=== PATIENT | female | born 1945 | race Caucasian/White ===

== ENCOUNTER 2019-03-24 05:34 | Day surgery (SDC) | payer MEDICARE ==
[~2019-03-24] VITALS: Ht 160 cm; Wt 63.8 kg
[~2019-03-24 05:34] MED LIST: ASPI-555 PO; ATOR20TA65 PO; BUPR100T13 PO; CLOBETASOL; ESOM40CA54 PO; FLUT16H NASAL; LACT1CAP62 PO; LITH150C PO; LORA10CA9 PO; META-25 PO; METO25TA6 PO; NITROSTAT; OLOP2.5D5 OU; OMEG-148 PO; TYLENOL PM PO; UBID100C10 PO; VITAMIN B 12 PO
[2019-03-24] MEDS ORDERED: SODIUM CHLORIDE 0.9% 1000ML 1,000 ML IV ONE ×2 (05:40)
[2019-03-24] MEDS ORDERED: LIDOCAINE HCL 1% 20 ML VIAL ONE (06:01)
[2019-03-24] MEDS ORDERED: PROPOFOL 10 MG/ML 20ML VIAL IV ONE (06:01)
[2019-03-24 06:05] VITALS: BP 126/45
[2019-03-24 07:29] VITALS: BP 123/53
[2019-03-24 07:34] VITALS: BP 132/51
[2019-03-24 07:39] VITALS: BP 124/46
[2019-03-24 07:44] VITALS: BP 135/54
== END 2019-03-24 07:53 | disposition home or self-care (01) ==
LOC: DAH 05:34 → ENDO 05:34
PROVIDERS: ATTEND Internal Medicine
DX: K29.50 Unspecified chronic gastritis without bleeding (principal); K22.2 Esophageal obstruction; K44.9 Diaphragmatic hernia without obstruction or gangrene; I11.0 Hypertensive heart disease with heart failure; I50.9 Heart failure, unspecified; E78.00 Pure hypercholesterolemia, unspecified; M19.90 Unspecified osteoarthritis, unspecified site; K21.9 Gastro-esophageal reflux disease without esophagitis; I25.10 Atherosclerotic heart disease of native coronary artery without angina pectoris; F31.9 Bipolar disorder, unspecified; Z88.1 Allergy status to other antibiotic agents; Z88.8 Allergy status to other drugs, medicaments and biological substances; Z79.899 Other long term (current) drug therapy; Z79.01 Long term (current) use of anticoagulants; Z90.710 Acquired absence of both cervix and uterus; Z98.890 Other specified postprocedural states
CPT/HCPCS: 43239; 43249; 88305; 88342; 93005; A4606; J2704; J7030 ×2

== ENCOUNTER → 2019-06-07 | Outpatient (CLI) | payer MEDICARE | END | disposition home or self-care (01) | LOC: RAH 14:40 | PROVIDERS: ATTEND Physical Medicine & Rehabilitation | DX: M51.16 Intervertebral disc disorders with radiculopathy, lumbar region (principal); N28.1 Cyst of kidney, acquired; M51.26 Other intervertebral disc displacement, lumbar region | CPT/HCPCS: 72148 ==

== ENCOUNTER → 2019-06-15 | Outpatient (CLI) | payer MEDICARE | END | disposition home or self-care (01) | LOC: RAH 12:58 | PROVIDERS: ATTEND Family Medicine | DX: I73.9 Peripheral vascular disease, unspecified (principal); M79.661 Pain in right lower leg | CPT/HCPCS: 93926 ==

== ENCOUNTER → 2019-06-18 | Outpatient (CLI) | payer MEDICARE | END | disposition home or self-care (01) | LOC: RAH 11:02 | PROVIDERS: ATTEND Physical Medicine & Rehabilitation | DX: M25.551 Pain in right hip (principal) | CPT/HCPCS: 73721 ==

== ENCOUNTER 2019-10-19 06:04 | Day surgery (SDC) | payer MEDICARE ==
[~2019-10-19] VITALS: Ht 160 cm; Wt 63.5 kg
[~2019-10-19 06:04] MED LIST changes: -BUPR100T13 PO; -ESOM40CA54 PO; +GABA-529 PO; -LACT1CAP62 PO; -NITROSTAT; +SODIUM CHLORIDE 0.9% 1000ML 1,000 ML IV ONE
[2019-10-19 07:34] VITALS: BP 130/67
[2019-10-19] MEDS ORDERED: PROPOFOL 10 MG/ML 20ML VIAL IV ONE (08:11)
[2019-10-19 08:40] VITALS: BP 122/52
[2019-10-19 08:45] VITALS: BP 116/52
[2019-10-19 08:50] VITALS: BP 129/63
[2019-10-19 09:04] VITALS: BP 121/72
== END 2019-10-19 09:07 | disposition home or self-care (01) ==
LOC: DAH 06:04 → ENDO 06:04
PROVIDERS: ATTEND Internal Medicine
DX: K62.5 Hemorrhage of anus and rectum (principal); K63.5 Polyp of colon; K57.30 Diverticulosis of large intestine without perforation or abscess without bleeding; K22.2 Esophageal obstruction; K64.0 First degree hemorrhoids; K31.89 Other diseases of stomach and duodenum; K22.8 Other specified diseases of esophagus; K21.9 Gastro-esophageal reflux disease without esophagitis; Q39.9 Congenital malformation of esophagus, unspecified; I25.810 Atherosclerosis of coronary artery bypass graft(s) without angina pectoris; I11.0 Hypertensive heart disease with heart failure; I50.9 Heart failure, unspecified; I25.2 Old myocardial infarction; K44.9 Diaphragmatic hernia without obstruction or gangrene; M19.90 Unspecified osteoarthritis, unspecified site; F31.9 Bipolar disorder, unspecified; E78.00 Pure hypercholesterolemia, unspecified; Z90.710 Acquired absence of both cervix and uterus; Z86.010 Personal history of colon polyps; Z90.89 Acquired absence of other organs
CPT/HCPCS: 43239; 43249; 45380; A4215; A4221; A4222; A4223; A4606; A4620; A4663; J2704; J7030